=== PATIENT | male | born 1975 | race African-American/Black ===

== ENCOUNTER 2018-10-05 09:54 | Emergency (ER) | payer OTHER ==
--- NOTE | 2018-10-05 11:07 | EDPHYS ---
Physician Documentation [facility] Name: Cristian Ferguson Age: 43 yrs Sex: Male : 1975 Arrival Date: 10/05/2018 Time: 09:58 Bed 19 Private MD: None, None ED Physician Yakov Temple HPI: 10/05 11:04 This 43 yrs old Black Male presents to ER via Ambulatory with complaints of Abscess. gs 11:04 the patient presents with a swollen area of the coccyx. Description: The affected area gs is small, localized. Onset: The symptoms/episode began/occurred 2 day(s) ago. Associated signs and symptoms: Pertinent negatives: discharge, drainage, erythema, fever. Modifying factors: the symptoms are alleviated by nothing, the symptoms are aggravated by sitting, touching. Severity of symptoms: At their worst the symptoms were moderate, in the emergency department the symptoms are unchanged. The patient has experienced similar episodes in the past, a few times. Historical: - Allergies: 10: No Known Allergies; hj - Home Meds: : None [Active]; hj - PMHx: : None; hj - PSHx: 10: None; hj - Immunization history:: Adult Immunizations up to date. - Social history:: Smoking status: Patient uses tobacco products, 2 cigarettes a day. - Ebola Screening: : Patient negative for fever greater than or equal to 101.5 degrees Fahrenheit, and additional compatible Ebola Virus Disease symptoms Patient denies exposure to infectious person Patient denies travel to an Ebola-affected area in the 21 days before illness onset. ROS: 11:04 All other systems are negative. gs Exam: 11:04 Cardiovascular: Regular rate and rhythm with a normal S1 and S2. No gallops, murmurs, gs or rubs. Normal PMI, no JVD. No pulse deficits. Respiratory: Lungs have equal breath sounds bilaterally, clear to auscultation and percussion. No rales, rhonchi or wheezes noted. No increased work of breathing, no retractions or nasal flaring. Abdomen/GI: Soft, non-tender, with normal bowel sounds. No distension or tympany. No guarding or rebound. No evidence of tenderness throughout. MS/ Extremity: Pulses equal, no cyanosis. Neurovascular intact. Full, normal range of motion. Neuro: Awake and alert, GCS 15, oriented to person, place, time, and situation. Cranial nerves II-XII grossly intact. Motor strength 5/5 in all extremities. Sensory grossly intact. Cerebellar exam normal. Normal gait. 11:04 Constitutional: The patient appears alert, awake. 11:04 Skin: abscess, that is small, with induration. Vital Signs: 10:10 BP 136 / 84; Pulse 90; Resp 18; Temp 98.8(TE); Pulse Ox 100% on R/A; Weight 124.74 kg; hj Height 6 ft. 2 in. (187.96 cm); Pain 6/10; 10:10 Body Mass Index 35.31 (124.74 kg, 187.96 cm) hj MDM: 10:23 Patient medically screened. 11:04 Differential diagnosis: abscess, pilonidal cyst. Data reviewed: vital signs, nurses gs notes. Physician consultation: Timothy Enamorado MD regarding consult, patient's condition, need to evaluate the patient as soon as possible, and will see patient in office, later today. Administered Medications: No medications were administered Disposition: 10/05/18 11:06 Discharged to Home. Impression: Pilonidal cyst without abscess. - Condition is Stable. - Discharge Instructions: Pilonidal Cyst. - Prescriptions for Doxycycline Monohydrate 100 mg Oral Tablet - take 1 tablet by ORAL route every 12 hours for 7 days; 14 tablet. - Medication Reconciliation Form, Thank You Letter, Antibiotic Education, Prescription Opioid Use, Work release form form. - Follow up: Timothy Enamorado MD; When: Today; Reason: Recheck today's complaints, Continuance of care. Signatures: Timothy Robles RN RN Brandi Pedroza RN RN tw2 Yakov Temple MD MD Corrections: (The following items were deleted from the chart) 11:11 11:06 10/05/2018 11:06 Discharged to Home. Impression: Pilonidal cyst without abscess. tw2 Condition is Stable. Forms are Medication Reconciliation Form, Thank You Letter, Antibiotic Education, Prescription Opioid Use. Follow up: Timothy Enamorado; When: Today; Reason: Recheck today's complaints, Continuance of care.
--- NOTE | 2018-10-05 11:07 | ER ---
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 Transition of care: patient was not received from another setting of care. Onset of symptoms was October 05, 2018. Risk Assessment: Do you want to hurt yourself or someone else? Patient reports no desire to harm self or others. Initial Sepsis Screen: Does the patient meet any 2 criteria? No. Patient's initial sepsis screen is negative. Does the patient have a suspected source of infection? No. Patient's initial sepsis screen is negative. Care prior to arrival: None. 10:06 Method Of Arrival: Ambulatory 10:06 Acuity: VERO 4 hj Triage Assessment: 10:09 General: Appears in no apparent distress. uncomfortable, Behavior is calm, cooperative, hj appropriate for age. Pain: Complains of pain in buttocks Pain currently is 6 out of 10 on a pain scale. Historical: - Allergies: 10:09 No Known Allergies; hj - Home Meds: 10:09 None [Active]; hj - PMHx: 10:09 None; hj - PSHx: 10:09 None; hj - Immunization history:: Adult Immunizations up to date. - Social history:: Smoking status: Patient uses tobacco products, 2 cigarettes a day. - Ebola Screening: : Patient negative for fever greater than or equal to 101.5 degrees Fahrenheit, and additional compatible Ebola Virus Disease symptoms Patient denies exposure to infectious person Patient denies travel to an Ebola-affected area in the 21 days before illness onset. Screenin:09 Abuse screen: Denies threats or abuse. Denies injuries from another. Nutritional hj screening: No deficits noted. Tuberculosis screening: No symptoms or risk factors identified. Fall Risk None identified. Assessment: 10:15 General: Appears in no apparent distress. well groomed, Behavior is calm, cooperative, tw2 appropriate for age. Pain: Complains of pain in buttocks. Neuro: Level of Consciousness is awake, alert, obeys commands, Oriented to person, place, time, situation. Cardiovascular: Capillary refill < 3 seconds Patient's skin is warm and dry. Respiratory: Airway is patent Respiratory effort is even, unlabored, Respiratory pattern is regular, symmetrical. GI: No signs and/or symptoms were reported involving the gastrointestinal system. : No signs and/or symptoms were reported regarding the genitourinary system. Derm: Abscess located on buttocks. 11:10 Reassessment: Patient appears in no apparent distress at this time. No changes from tw2 previously documented assessment. Patient and/or family updated on plan of care and expected duration. Pain level reassessed. Patient is alert, oriented x 3, equal unlabored respirations, skin warm/dry/pink. Vital Signs: 10:10 BP 136 / 84; Pulse 90; Resp 18; Temp 98.8(TE); Pulse Ox 100% on R/A; Weight 124.74 kg; hj Height 6 ft. 2 in. (187.96 cm); Pain 6/10; 10:10 Body Mass Index 35.31 (124.74 kg, 187.96 cm) ED Course: 09:58 Patient arrived in ED. sb2 09:59 None, None is Private Physician. sb2 10:08 Triage completed. hj 10:10 Arm band placed on left wrist. hj 10:10 Patient has correct armband on for positive identification. Bed in low position. Call hj light in reach. 10:11 Branid Pedroza RN is Primary Nurse. tw2 10:12 Yakov Temple MD is Attending Physician. gs 10:25 served as corporate travel consultant during exam. tw2 11:06 Timothy Enamorado MD is Referral Physician. gs 11:11 Patient did not have IV access during this emergency room visit. tw2 Administered Medications: No medications were administered Outcome: 11:06 Discharge ordered by . gs 11:10 Discharged to home ambulatory. tw2 11:10 Condition: stable 11:10 Discharge instructions given to patient, Instructed on discharge instructions, follow up and referral plans. medication usage, Demonstrated understanding of instructions, follow-up care, medications, Prescriptions given X 1. 11:11 Patient left the ED. tw2 Signatures: Timothy Robles RN RN hj Brandi Pedroza RN RN tw2 Yakov Temple MD MD Domonique Rose sb2 Corrections: (The following items were deleted from the chart) 10:12 10:10 Pulse 94bpm; Resp 18bpm; Pulse Ox 100% RA; Temp 98.8F Temporal; 124.74 kg; Height hj 6 ft. 2 in.; BMI: 35.3; Pain 6/10; hj
[2018-10-05 11:16] VITALS: BP 136/84; TEMP 98.8; O2SAT 100
== END 2018-10-05 11:11 | disposition home or self-care (01) ==
LOC: ER 09:54
DX: L05.91 Pilonidal cyst without abscess (principal); F17.210 Nicotine dependence, cigarettes, uncomplicated
CPT/HCPCS: 99282

== ENCOUNTER 2018-10-06 06:23 | Day surgery (SDC) | payer OTHER ==
[2018-10-05 17:20] LABS: Absolute Lymphocytes (CBC) 2.3 K/uL (0.7-4.9); Absolute Monocytes 0.6 K/uL (0.1-1.3); Absolute Neutrophil 5.1 K/uL (1.8-8.0); Basophils % 0.7 % (0-1.3); Eosinophils % 2.6 % (0-4.4); Lymphocytes % 28.2 % (15.3-44.8); MCH 27.1 pg (27.0-35.0); MCV 81.6 fL (80-100); MPV 7.4 fL (7.6-11.3); Monocytes % 7.3 % (3.3-12.3); RBC Red Blood Cell Count 5.27 M/uL (4.33-5.43)
[2018-10-05 17:35] LABS: Potassium 4.2 mmol/L (3.5-5.1)
--- NOTE | 2018-10-05 17:56 | RAD REPORT ---
EXAM DESCRIPTION: RAD - Chest Pa And Lat (2 Views) - 10/05/2018 5:49 pm CLINICAL HISTORY: Preop chest, pending soft tissue mass removal COMPARISON: None. TECHNIQUE: PA and lateral views of the chest were obtained. FINDINGS: The lungs are clear. Heart size is normal and central vasculature is within normal limit s. No pleural effusion or pneumothorax seen. No acute bony finding noted. No aortic abnormality. IMPRESSION: No acute cardiopulmonary process.
--- NOTE | 2018-10-06 05:47 | EKG ---
Test Date: 2018-10-05 Test Time: 17:20:25 Hide Examiner: FLAVIO MEASUREMENT RESULTS: Intervals: Rate: 94 KS: 158 QRSD: 94 QT: 344 QTc: 430 Kechi: P: 45 KS: 158 QRS: 45 T: 21 INTERPRETIVE STATEMENTS: Normal sinus rhythm Normal ECG No previous ECG available for comparison Electronically Signed On 10-06-18 05:47:04 LEASE PICKER by Kranthi Taylor
[2018-10-06] MEDS ORDERED: Ringers Lactate 1,000 ML IV ONE (06:44)
[2018-10-06] MEDS ORDERED: CEFAZOLIN 1GM (PREMIX IV) 1 GM/50 ML BAG ONE (06:44)
[2018-10-06] MEDS ORDERED: PROPOFOL 200 MG/20 ML VIAL IV ONE (07:18)
[2018-10-06] MEDS ORDERED: FENTANYL CITR 100 MCG/2 ML ONE (07:19)
[2018-10-06] MEDS ORDERED: MIDAZOLAM HCL 2 MG/2 ML INJ ONE (07:19)
[2018-10-06] MEDS ORDERED: LIDOCAINE 2% MPF 5 ML VIAL ONE (07:20)
[2018-10-06] MEDS ORDERED: ROCURONIUM 50 MG/5 ML VIAL IV ONE (07:21)
[2018-10-06] MEDS ORDERED: ONDANSETRON 4 MG/2 ML VIAL ONE (07:21)
[2018-10-06] MEDS: METHYLENE BLUE 0.5% 10 ML AMP ONE ×2 (07:53→08:29)
--- NOTE | 2018-10-06 08:49 | P.BOP ---
Preoperative diagnosis: infected pilonidal cyst, cellulitis back Postoperative diagnosis: same Primary procedure: Wide excision of infected pilonidal cyst with abscess drainage [id number] Estimated blood loss: <10cc Specimen: pus Findings: infected pilonidal cyst with abscess Anesthesia: General Complications: None Drain(s): Other Transferred to: Recovery Room Condition: Good
[2018-10-06] MEDS ORDERED: NEOSTIGMINE 1 MG/ML -5 ML SYRINGE ONE (08:56)
[2018-10-06] MEDS ORDERED: GLYCOPYRROLATE 0.2 MG/ML SYR ONE (08:56)
[2018-10-06] MEDS ORDERED: DEXAMETHASONE 10 MG/ML VIAL ONE (09:07)
[2018-10-06] MEDS: MEPERIDINE HCL 25 MG/0.5 ML ONE ×2 (09:14→09:25)
[2018-10-06 09:52] VITALS: TEMP 97.5
[2018-10-06] MEDS ORDERED: HYDROCODONE/APAP 5/325 MG TAB ONE (10:42)
[2018-10-06 11:11] VITALS: BP 107/57; O2SAT 96
--- NOTE | 2018-10-06 20:12 | OP ---
Date of Procedure: 10/06/2018 Surgeon: Timothy Enamorado MD Preoperative Diagnosis: An infected pilonidal cyst with cellulitis of the back. Postoperative Diagnosis: An infected pilonidal cyst with cellulitis of the back. Procedure: Wide excision of infected pilonidal cyst with drainage of an abscess, 8 x 5 x 3 cm. Anesthesia: General plus local. Packing: Iodoform packing. Indications: This is the case of a 43 years old patient, comes to us with above diagnosis. Fully ex plained the benefits, alternatives, and risks of incision and drainage of an abscess and wide excisio n of pilonidal cyst, which included, but not limited to infection, bleeding, damage to adjacent struc tures, anesthesia complication, recurrence, NH, and even . He also understands this may not rel ieve any symptoms. He might need more than one surgical intervention. He also understands the impor tance of wound care. Description Of Procedure: The patient was brought to the operating room and placed in supine positio n. Anesthesia was done without complication. Time-out was called. The patient was placed in prone position with proper protection. Perisacral area was prepped and draped in a sterile fashion. Once again, time-out was called. A small Angiocath was placed through one of the openings of this cyst an d methylene blue was placed over the area. After that, we proceeded to do a wedge incision of the sk in, removing the openings the patient had in that area which were multiple in the midline and getting access to the deep complex pilonidal cyst. This went all the way down to the sacrum. Bone was not exposed. The entire cyst was excised, everything blue was excised, purulent discharge was cultured a nd then irrigated. Hemostasis obtained and then the area was packed with wet-to-dry dressing. The p atient tolerated the procedure well. Local anesthesia was applied before closure and also hemostasis was obtained. Sponge count and instrument counts were correct. JOSE LUIS/CR Voice ID: [id number] Report ID: [id number]
--- NOTE | 2018-10-06 20:15 | DS ---
Date of Discharge: 10/06/2018 Diagnosis: Infected pilonidal cyst with abscess. Procedure: Wide excision of infected pilonidal cyst with abscess drainage. Disposition: Home. Activity: As tolerated. No heavy lifting. Followup: Follow up in my office in 1 week, call for appointment at [phone]. Discharge Instructions: The patient is already taking Bactrim. We are going to give him Vicodin q.4 hours p.r.n. pain and a normal saline prescription. His is comfortable with the dressing piter chung and they have done it before, so he is going to continue wet-to-dry dressing daily. JOSE LUIS/CR Voice ID: [id number] Report ID: [id number]
== END 2018-10-06 11:10 | disposition home or self-care (01) ==
LOC: OR 06:23
PROVIDERS: ATTEND Surgery
PROC: 0JB90ZZ Excision of Buttock Subcutaneous Tissue and Fascia, Open Approach (ICD-10-PCS; principal; 2018-10-06 07:30)
DX: L05.91 Pilonidal cyst without abscess (principal); L03.312 Cellulitis of back [any part except buttock and flank]; F17.210 Nicotine dependence, cigarettes, uncomplicated
CPT/HCPCS: 36415; 71046; 80048; 85025; 87070; 87075; 87077; 87186; 87205; 88304; 93005; J0690; J1100; J2175; J2250; J2405; J2704; J2710; J3010